=== PATIENT | male | born 1985 | race Caucasian/White ===

== ENCOUNTER 2021-06-02 09:51 | Emergency (ER) | payer MEDICAID ==
--- NOTE | 2021-06-02 10:53 | EDM.PDOC ---
ED HPI GENERAL MEDICAL PROBLEM - General Chief Complaint: ENT Problem Stated Complaint: TOOTH PAIN Time Seen by Provider: 06/02/21 10:19 Source of Information: Reports: Patient History Limitations: Reports: No Limitations - History of Present Illness INITIAL COMMENTS - FREE TEXT/NARRATIVE: The patient presents with left lower jaw pain and swelling. This has been going on for a couple of days. He has no fever or chills. He has no dentist in town. He will get dental insurance next month. 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 Right Lower Tooth/Teeth Pain Score (Numeric/FACES): 6 - Related Data Allergies Allergy/AdvReac Type Severity Reaction Status Date / Time No Known Allergies Allergy Verified 06/02/21 10:17 Home Meds: Home Meds Hydrocodone/Acetaminophen [Hydrocodone-Acetamin 5-325 mg] 1 - 2 each PO Q6H PRN #15 tablet 06/02/21 [Rx] Penicillin V Potassium 500 mg PO Q6HR #40 tab 06/02/21 [Rx] Past Medical History - Past Health History Medical/Surgical History: Denies Medical/Surgical History Social & Family History - Tobacco Use Tobacco Use Status *Q: Never Tobacco User Second Hand Smoke Exposure: No - Caffeine Use Caffeine Use: Reports: None - Recreational Drug Use Recreational Drug Use: No ED ROS ENT - Review of Systems Review Of Systems: See Below Constitutional: Reports: No Symptoms HEENT: Reports: Dental Pain Respiratory: Reports: No Symptoms Cardiovascular: Reports: No Symptoms Endocrine: Reports: No Symptoms GI/Abdominal: Reports: No Symptoms : Reports: No Symptoms ED EXAM, ENT - Physical Exam Exam: See Below Exam Limited By: No Limitations General Appearance: Alert, No Apparent Distress Ears: Normal External Exam Nose: Normal Inspection Mouth/Throat: Other (Pain upon palpation and edema to the right lower gums and jaw.) Head: Atraumatic, Normocephalic Neck: Normal Inspection, Supple, Non-Tender Respiratory/Chest: No Respiratory Distress Course - Vital Signs Last Recorded V/S: Last Vital Signs Temp 98.0 F 06/02/21 10:21 Pulse 109 H 06/02/21 10:21 Resp 18 06/02/21 10:21 BP 165/108 H 06/02/21 10:21 Pulse Ox 95 06/02/21 10:21 Departure - Departure Time of Disposition: 10:50 Disposition: Home, Self-Care 01 Condition: Good Clinical Impression: Dental abscess, Pain, dental - Discharge Information *PRESCRIPTION DRUG MONITORING PROGRAM REVIEWED*: Not Applicable *COPY OF PRESCRIPTION DRUG MONITORING REPORT IN PATIENT LIEN: Not Applicable Prescriptions: Hydrocodone/Acetaminophen [Hydrocodone-Acetamin 5-325 mg] 1 - 2 each PO Q6H PRN #15 tablet PRN Reason: Pain Penicillin V Potassium 500 mg PO Q6HR #40 tab Referrals: PCP,None [Primary Care Provider] - Additional Instructions: Take the penicillin VK four times per day for a week. Take tylenol or motrin as needed for pain. If that does not help, try the hydrocodone. Follow up with a dentist in [facility]. Put warm compresses on your jaw 3 times per day for 3 to 5 days. Please return if you are worse. Sepsis Event Note (ED) - Evaluation Sepsis Screening Result: No Definite Risk - Focused Exam Vital Signs: Vital Signs Temp Pulse Resp BP Pulse Ox 06/02/21 10:21 98.0 F 109 H 18 165/108 H 95
== END 2021-06-02 11:05 | disposition home or self-care (01) ==
LOC: JD.ED 09:51
DX: K04.7 Periapical abscess without sinus (principal)
CPT/HCPCS: 99282